=== PATIENT | female | born 1960 | race Caucasian/White ===

== ENCOUNTER 2018-12-25 10:15 | Observation (INO) | payer OTHER, MEDICAID ==
[2018-12-25] MEDS: SOD CHLORIDE 0.9% 1,000 ML IV (06:00)
[~2018-12-25 10:15] MED LIST: CEFAZOLIN 1 GM/50 ML (PMX) 50 ML IVPB
[2018-12-25] MEDS ORDERED: ISOSULFAN BLUE 1% 5 ML INJ SC (12:23)
[2018-12-25] MEDS: ISOSULFAN BLUE 1% 5 ML INJ SC (12:34)
[2018-12-25] MEDS ORDERED: ONDANSETRON 4 MG INJ (12:40)
[2018-12-25] MEDS ORDERED: METOCLOPRAMIDE 10 MG INJ (12:40)
[2018-12-25] MEDS ORDERED: PROPOFOL 20 ML (12:40)
[2018-12-25] MEDS ORDERED: LIDOCAINE 2% (SDV) 5 ML INJ (12:40)
[2018-12-25] MEDS ORDERED: MEPERIDINE 100 MG INJ (12:40)
[2018-12-25] MEDS ORDERED: CEFAZOLIN 1 GM INJ (12:40)
[2018-12-25] MEDS ORDERED: HYDROmorphONE 1 MG/5 ML IV SYRINGE IV ×3 (14:30)
[2018-12-25] MEDS ORDERED: LABETALOL HCL 20MG INJ IV (14:30)
[2018-12-25] MEDS ORDERED: MIDAZOLAM 1 MG/ML 2 ML INJ IV (14:30)
[2018-12-25] MEDS ORDERED: OXYCODONE/ACETAMINOPHEN (5/325) TAB PO ×2 (14:30)
[2018-12-25] MEDS ORDERED: METOCLOPRAMIDE 10 MG INJ IV (14:30)
[2018-12-25] MEDS ORDERED: FENTAnyl 50 MCG/ML VIAL IV ×2 (14:30)
[2018-12-25] MEDS ORDERED: EPHEDrine SULFATE 50 MG/5 ML SYG IV (14:30)
[2018-12-25] MEDS ORDERED: DIPHENHYDRAMINE 50 MG INJ IV (14:30)
[2018-12-25] MEDS ORDERED: ONDANSETRON 4 MG INJ IV ×2 (14:30)
[2018-12-25] MEDS ORDERED: HYDROmorphONE 1 MG/ML SYG SC (14:30)
[2018-12-25] MEDS ORDERED: CEFAZOLIN 3 GM in SOD CHLORIDE 0.9% 100 ML IVPB (14:30)
[2018-12-25] MEDS ORDERED: MEPERIDINE 25 MG INJ IV (14:30)
[2018-12-25] MEDS ORDERED: DIPHENHYDRAMINE 25 MG CAP PO (14:30)
[2018-12-25] MEDS ORDERED: ACETAMINOPHEN 325 MG TAB PO (14:30)
[2018-12-25] MEDS ORDERED: hydrALAzine 20 MG INJ IV (14:30)
[2018-12-25] MEDS: FENTAnyl 50 MCG/ML VIAL IV (15:04)
[2018-12-25] MEDS: D5W-0.45 NACL + KCL 20 MEQ 1,000 ML IV (16:52)
[2018-12-25] MEDS: CEFAZOLIN 1 GM/50 ML (PMX) 50 ML IVPB (17:27)
[2018-12-25] MEDS: HYDROCODONE/APAP (5/325) TAB PO (18:53)
[2018-12-26] MEDS: D5W-0.45 NACL + KCL 20 MEQ 1,000 ML IV ×2 (00:20→01:22)
[2018-12-26] MEDS: CEFAZOLIN 1 GM/50 ML (PMX) 50 ML IVPB ×2 (01:19→09:47)
[2018-12-26] MEDS: HYDROCODONE/APAP (5/325) TAB PO ×2 (07:01→12:49)
[2018-12-26] MEDS: HYDROXYCHLOROQUINE 200 MG TAB PO (10:00)
[2018-12-26] MEDS: LISINOPRIL 10 MG TAB PO (10:00)
[2018-12-26] MEDS ORDERED: GLUCOSE GEL 15 GRAM TUBE PO ×2 (10:30)
[2018-12-26] MEDS ORDERED: DEXTROSE 50% 50 ML SYRINGE IV ×2 (10:30)
[2018-12-26] MEDS ORDERED: GLUCOSE GEL 15 GRAM TUBE BUCCAL (10:30)
[2018-12-26] MEDS ORDERED: GLUCAGON 1 MG INJ IM (10:30)
[2018-12-26] MEDS: ACCU-CHEK XX (11:10)
[2018-12-26] MEDS ORDERED: ACCU-CHEK XX (11:10)
[2018-12-26] MEDS ORDERED: metFORMIN 500 MG TAB PO (17:55)
[2018-12-27] MEDS ORDERED: GLIMEPIRIDE 2 MG TAB PO (07:20)
== END 2018-12-26 15:20 | disposition home or self-care (01) ==
LOC: SDS 10:15 → REC 15:42 → MS1 15:52
PROVIDERS: Surgery
DX: C50.912 Malignant neoplasm of unspecified site of left female breast (principal); C77.3 Secondary and unspecified malignant neoplasm of axilla and upper limb lymph nodes
CPT/HCPCS: 19301; 82962; 88307; 88331; 99217